=== PATIENT | male | born 2005 | race Caucasian/White ===

== ENCOUNTER 2024-12-08 02:32 | Emergency (ER) | payer MEDICAID ==
[~2024-12-08] VITALS: Ht 170.2 cm; Wt 75.0 kg
[2024-12-08 02:36] VITALS: O2SAT 100
[2024-12-08 03:23] LABS: HEMATOCRIT. 44.5 % (42.0-52.0); HEMOGLOBIN. 14.7 g/dL (14.0-18.0); MEAN PLATELET VOLUME 7.2 fl (7.4-10.4); PLATELET 363 x1000/uL (130-400); RED BLOOD CELL COUNT 5.02 mill/uL (4.7-6.1); RED CELL DISTRIBUTION WIDTH 12.8 % (11.6-14.6)
[2024-12-08 03:29] LABS: CREATININE 1.4 mg/dL (0.6-1.3)
[2024-12-08 03:30] LABS: ETHANOL BLOOD < 10 mg/dL (<10); UREA NITROGEN BLOOD 23 mg/dL (9-23)
[2024-12-08 06:21] VITALS: BP 116/71; PULSE 78; RESP 15; TEMP 36.9; O2SAT 100
[2024-12-08 06:49] LABS: LYMPHOCYTES % MANUAL 2.0 % (20.0-50.0); MONOCYTES % MANUAL 1.0 % (2.0-8.0); NEUTROPHILS % MANUAL 97.0 % (45.0-75.0); PLATELET ESTIMATE NORMAL
== END 2024-12-08 06:36 | disposition home or self-care (01) ==
LOC: EDBD 02:32 → ER 02:32
DX: T40.991A Poisoning by other psychodysleptics [hallucinogens], accidental (unintentional), initial encounter (principal); R41.82 Altered mental status, unspecified; F23 Brief psychotic disorder; Z20.822 Contact with and (suspected) exposure to COVID-19; Y92.89 Other specified places as the place of occurrence of the external cause
CPT/HCPCS: 36415; 80048; 80307; 80320; 80329; 85025; 87426; 99283; G0480